=== PATIENT | male | born 1935 | race Two or more races ===

== ENCOUNTER 2016-11-30 01:57 | Inpatient (IN) | payer MEDICARE ==
[~2016-11-30] VITALS: Ht 179.1 cm; Wt 74.4 kg
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
--- NOTE | 2016-11-30 07:46 | NUR ---
Received nursing message to change attending MD to , called admissions and spoke to Mahogany to make change.
[2016-11-30 08:02] VITALS: BP 105/46; BP 159/108
--- NOTE | 2016-11-30 08:30 | NUR ---
B.) Entered patient room, patient immediately jumped out of bed and came up to nurse face and with an aggressive tone of voice " get out of my house, you are not needed here, get out." unable to redirect or orient patient, becoming angry as nurse tried to talk to him, patient then closed the door. I.) No medications ordered at this time. Allow patient to settle into unit milieu, allow to vent. Monitor safety. R.) Patient refuses conversation and assessment, unccoperative with any care, refused to come out of room, refused breakfast. Attempts at aggression when approached, will not allow interaction. Closes self in room. Safety maintained, checked on often, no distress assessed. P.) Continue with plan of care.
[2016-11-30] MEDS ORDERED: GLUCOPHAGE500 MG PO (13:52)
[2016-11-30] MEDS ORDERED: BAYER CHEWABLE81 MG PO (13:56)
[2016-11-30] MEDS ORDERED: JALYN 0.5-0.41 EACH PO (13:56)
[2016-11-30] MEDS ORDERED: NAPROSYN500 MG PO (13:57)
--- NOTE | 2016-11-30 14:14 | NUR ---
Remains in room, quite and sleeping, awakes to door opening.
[2016-11-30] MEDS ORDERED: DITROPAN X10 MG/BOTT PO (19:14)
[2016-11-30] MEDS ORDERED: ALTACE5 MG PO (19:15)
[2016-11-30 19:30] VITALS: BP 113/85
[2016-11-30 20:00] LABS: BASOPHILS 0 % (0-2); HEMOGLOBIN 13.3 g/dL (13.5-17.5); IMMATURE GRANULOCYTES 0.3 % (0-5); LYMPHOCYTES 28.6 % (15-50); MCHC 32.4 g/dL (31.0-37.0); MCV 86.3 fL (80.0-100.0); MEAN PLATELET VOLUME 9.7 fL (7.4-10.4); MONOCYTES 13.1 % (2-11); PLATELET COUNT 192 10x3/uL (130-400); RBC 4.75 10x6/uL (4.20-6.10); RDW 13.9 % (11.5-14.5); WBC 3.3 10x3/uL (4.8-10.8)
[2016-11-30 20:23] LABS: ALBUMIN 3.7 g/dL (3.4-5.0); ANION GAP 12.8 mmol/L (8-16); BILIRUBIN - TOTAL 0.48 mg/dL (0.2-1.3); CALCIUM 8.8 mg/dL (8.5-10.1); CARBON DIOXIDE 28.3 mmol/L (21.0-32.0); CHOL - HDL RATIO 2.7 ratio (2.3-4.9); CREATININE - SERUM 1.6 mg/dL (0.6-1.3); LDL-HDL RATIO 1.6 ratio (1.5-3.5); POTASSIUM - SERUM 4.1 mmol/L (3.5-5.1); PROTEIN - SERUM 7.2 g/dL (6.4-8.2); THYROID STIMULATING HORMONE 1.01 uIU/mL (0.36-3.74)
--- NOTE | 2016-11-30 20:28 | NUR ---
RECEIVED IN DAYROOM. SITTING QUIETLY AT TABLE WITH STAFF. CALM AND COOPERATIVE WITH CARE AND ASSESSMENTS. ORIENTED TO SELF ONLY. NO SIGNS OF AGGRESSION. REORIENT NEEDED. RESTING IN RECLINER AT THIS TIME. CONTINUE PLAN OF CARE
[2016-12-01 07:00] VITALS: BP 128/95
--- NOTE | 2016-12-01 12:44 | NUR ---
Received patient this am,alert and oriented to name and somewhat to place. Administer medications and monitor compliance. Redirect for any inappropriate behavior. Reorient as need. Encourage group participation. Monitor safety. Compliant with medications, pleasant but is confused to place and situation, unable to recall reason for hospitalization, when states age he forgets and states new age every time. Calm and cooperative with care. Particiates in group activities and is social with peers without any aggressive behavior. Safety maintained. Continue plan of care.
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
[2016-12-01 13:57] VITALS: Ht 179.1 cm; Wt 74.4 kg
[2016-12-01 19:23] VITALS: BP 157/102
--- NOTE | 2016-12-01 21:44 | NUR ---
RECEIVED IN DAYROOM. MOVING ABOUT SOCIALIZING WITH PEERS. VERY CONFUSED TO SITUATION. CALM AND COOPERAQTIVE WITH CARE AND ASSESSMENT. REDIRECT AND REORIENT NEEDED. PROVIDE ONE ON ONE TIME FOR PATIENT TO EXPRESS FEELINGS. RESTING IN BED EYES CLOSED AT THIS TIME. CONTINUE PLAN OF CARE
--- NOTE | 2016-12-02 03:03 | NUR ---
UP IN HALLWAY. CONFUSED. THINKS HE IS AT HOME AND WANTS TO KNOW WHO EBVERYONE IS. REORIENED. REDIRECTED BACK TO HIS ROOM. CONTINUES TO HAVE ANXIETY. ATIVAN 0.5 MG PO GIVEN
[2016-12-02 06:15] LABS: RAPID PLASMA REAGIN Non Reactive (Non Reactive)
[2016-12-02 08:36] VITALS: BP 141/92
[2016-12-02 11:19] LABS: VITAMIN D 25 HYDROXY 16.2 ng/mL (30.0-100.0)
[2016-12-02 15:03] LABS: APPEARANCE CLEAR (CLEAR); BILIRUBIN NEGATIVE (NEGATIVE); COLOR YELLOW (YELLOW); GLUCOSE NEGATIVE (NEGATIVE); KETONE NEGATIVE (NEGATIVE); LEUKOCYTE ESTERASE NEGATIVE (NEGATIVE); NITRITE NEGATIVE (NEGATIVE); PROTEIN TRACE mg/dL (NEGATIVE); SPECIFIC GRAVITY 1.015 (1.005-1.020); UROBILINOGEN NORMAL (NORMAL)
--- NOTE | 2016-12-02 15:54 | NUR ---
Patient is calm and cooperative. Oriented to self only, not time, place or situation. Several times patient has asked to be able to notify , he was assured that he can call her at the designated time. Patient is very amiable and friendly. At various times reads or watches t.v. His gait is slightly impaired, attempts have been made to get him to use a walker. He is reluctant to use. Continue to monitor
--- NOTE | 2016-12-02 16:51 | PN ---
PATIENT:THUAN COX MEDICAL RECORD: [id number] LOCATION:[facility] ADMISSION DATE: 11/30/16 PROGRESS NOTE DATE OF SERVICE: 12/01/2016 SUBJECTIVE: The patient's case was discussed with staff. He has no new complaint. OBJECTIVE: The patient has been in good behavioral control, but he is seriously and significantly confused. He has been unable to tract or remember thinking adequately. He insists that he knows nothing about how or why he arrived here and insists that he has never met me even though we met yesterday. He is asking the same questions repeatedly and although he is not agitated it is very clear that he is impaired cognitively. ASSESSMENT: No change in diagnoses. PLAN: The patient is going to be tested by Dr. Vibha Tan our neuropsychologist. I anticipate he is going to score in the severe range of impairment. Given his agitated behavior with a hammer and his aggression toward his , I must recommend a long-term placement for him for reasons of safety. The family will be here this afternoon and that recommendation it will be made, I do not know what their intentions are at this point. I think that would be the least restrictive environment. TRANSINT:[id number] Voice Confirmation ID: [id number] DOCUMENT ID: [id number] MARQUISE FRY MD at 1651 CC: [id number] DICTATION DATE: 12/01/16 1407 MEDICAL INVESTIGATOR: 12/01/16 2105 ADM IN [facility] [address] [place] [id number]
[2016-12-02 19:19] VITALS: BP 120/80
--- NOTE | 2016-12-02 21:10 | NUR ---
B)RECEIVED IN HALLWAY, AMBULATING ABOUT INDEPENDENTLY. SOCIALIZES WITH PEERS. CALM AND COOPERATIVE WITH CARE AND ASSESSMENT. VERY CONFUSED AND DISORIENTED. STATES, "THIS IS MY HOUSE AND ICAN DO WHAT I WANT TO." I) ADMINISTERED MEDICATIONS. REDIRECTED AND REORIENTED. VSS. R) MEDICATION COMPLIANT. DIFFICULT TO REDIRECT AND DOESN'T COMPREHEND WHERE HE IS. P) CONTINUE WITH CURRENT PLAN OF CARE.
--- NOTE | 2016-12-03 10:01 | NUR ---
SW SPOKE WITH PT'S , WINNIE, ABOUT DISCHARGE PLANS FOR TOMORROW. SW EXPLAINED PT'S LEVEL OF CARE NEEDED AND JAIL PLACEMENT WAS RECOMMENDED. STATED SHE TOOK CARE OF HER MOTHER WITH [facility] AND IS WELL AWARE OF THE CARE NEEDED. SW STATED PT WILL NEED 24/7 SUPERVISION. PT HAS A BIG SUPPORT SYSTEM AND FAMILY WILL HELP OUT WHEN NEEDED REPORTED BY MRS. COX. VERBALIZED UNDERSTANDING OF DISCHARGE PLANS AND LEVEL OF CARE NEEDED.
--- NOTE | 2016-12-03 10:20 | NUR ---
B) PATIENT IS AWAKE AND ALERT, HE IS CONFUSED. HE HAS FORGOTTEN HE IS IN THE HOSPITAL, AFTER BREAKFAST HE SAID HE WANTED TO GO TO HIS ROOM, STAFF HAD TO EXPLAIN TO HIM THAT HE IS IN THE HOSPITAL. HE KEEPS REFERRING TO BEING HERE A HOTEL. PATIENT AMBULATES, BUT HE IS UNSTEADY, HE LEANS FORWARD AND HE IS A FAST WALKER. HE REFUSES A WALKER WHEN OFFERED. I) PROVIDE PRESCRIBED MEDS. R) PATIENT IS COMPLIANT WITH MEDS, BUT HE REMAINS CONFUSED. P) CONTINUE PLAN OF CARE.
[2016-12-03 10:30] VITALS: BP 128/83
--- NOTE | 2016-12-03 13:55 | PN ---
PATIENT:THUAN COX MEDICAL RECORD: [id number] LOCATION:[facility] ADMISSION DATE: 11/30/16 PROGRESS NOTE DATE OF SERVICE: 12/02/2016 SUBJECTIVE: The patient's case was discussed with staff. He has no new complaint. OBJECTIVE: The patient was agitated last night. Apparently, he moved all of his things out of his room. He has no recollection of this. He did require some p.r.n. Ativan last night about 3:00 in the morning to calm him. ASSESSMENT: No change in diagnoses. PLAN: The patient is likely to continue to have confusion, particularly at night. This is the crux of why he should not be at home and should be living in a safer environment with structure. His has nothing, but kindness and concerned about his well being, but in my opinion, she is making a grave mistake by not placing him in the halfway and she is potentially at risk. There is not a medicine that would guarantee that he is not going to become confused, agitated, and perhaps aggressive with her. I think it will happen again. She is understanding of this and just simply says that she would not placed in a halfway ever. This is not a good decision. It does not rise to the level at this point of being reportable to adult protective services, so they can intervene. Unfortunately, it will not rise to the level being reported to adult protective services until there is a serious incident and therein lies the dilemma with clearly the person most at risk being his . I anticipate he can be transitioned out of the hospital soon. TRANSINT:[id number] Voice Confirmation ID: [id number] DOCUMENT ID: [id number] MARQUISE FRY MD at 1355 CC: [id number] DICTATION DATE: 12/02/16 1702 HOSPITALITY TEAM MEMBER: 12/02/16 2352 ADM IN [facility] [address] [place] [address]
[2016-12-03] MEDS ORDERED: NAMENDA5 MG PO (14:00)
[2016-12-03] MEDS ORDERED: FLOMAX0.4 MG PO (14:00)
[2016-12-03] MEDS ORDERED: SEROQUEL25 MG PO (14:00)
[2016-12-03] MEDS ORDERED: AVODART0.5 MG PO (14:01)
--- NOTE | 2016-12-03 15:46 | NUR ---
PATIENT IS CONFUSED HE KEEPS SAYING "WELL, i GUESS i BETTER GO NOW, I CAN WALK HOME" PATIENT HAS HAD TO BE REDIRECTED, BUT IN FIVE MINUTES HE SAYS THE SAME THING.
[2016-12-03 19:30] VITALS: BP 152/58
--- NOTE | 2016-12-03 20:45 | NUR ---
SHIFT ASSESSMENT COMPLETED PER FLOW SHEET. RECEIVED AMBULATING INDEPENDENTLY IN HALLWAY, WITH A FAST GAIT. VERY CONFUSED AND ANXIOUS TONIGHT. HE WANTS TO GO HOME TONIGHT, LOOKING FOR HIS CAR, WALKS OUT OF ROOM FREQUENTLY LOOKING FOR REFRIGERATOR. HE HAS BEEN VERY ARGUING WITH STAFF AND PEERS TONIGHT. REDIRECT TO APPROPRIATE BEHAVIOR. DIFFICULT TO REDIRECT. MEDICATION COMPLIANT. WILL CONTINUE PLAN OF CARE AND MAINTAIN SAFETY.
--- NOTE | 2016-12-03 21:30 | NUR ---
DR. FRY CALLED RE: MEDICATIONS FOR INCREASING AGITATION AND ANXIETY. NEW MEDS. RECEIVED AND NOTED.
--- NOTE | 2016-12-03 21:51 | NUR ---
HALDOL 2 MG AND ATIVAN 0.5 MG IM GIVEN IN LEFT DORSOGLUTEALFOR ANXIETY.
[2016-12-04 08:37] VITALS: BP 151/93
--- NOTE | 2016-12-04 12:05 | NUR ---
B) PATIENT IS AWAKE, HE IS ORIENTED TO NAME ONLY, HE IS CONFUSED, HE BELIEVES HE IS IN [place] AND HIS IS SUPPOSE TO PICK HIM UP, ALTHOUGH, HE SAYS "I DROVE THE OTHER CAR HERE" HE IS NONSENSICAL AND HE CONFABULATES. HE IS UNSTEADY IN GAIT BECAUSE HE LEANS FORWARD AND WALKS FAST. I) PROVIDE PRESCRIBED MEDS, REDIRECT NEEDED. R) PATIENT IS COMPLIANT WITH MEDS, HE ASKS THE SAME QUESTION MULTIPLE TIMES. MOSTLY ABOUT LEAVING AND WONDERING ABOUT HIS . P) CONTINUE PLAN OF CARE.
--- NOTE | 2016-12-04 12:55 | NUR ---
Nutrition Follow Up: Chart reviewed. Pt is eating 90% meal avg on a diabetic diet. No BM since admit. Labs reviewed - Glucose trending down. Meds noted including Metformin. Rec continue current diet. RD following.
--- NOTE | 2016-12-04 13:17 | PN ---
PATIENT:THUAN COX MEDICAL RECORD: [id number] [facility] ADMISSION DATE: 11/30/16 PROGRESS NOTE DATE OF SERVICE: 12/03/2016 SUBJECTIVE: The patient's case was discussed with staff. He has no new complaint. OBJECTIVE: The patient is in good behavioral control with limited insight about his condition. He tolerates his medicines well. ASSESSMENT: No change in diagnoses. PLAN: The patient is not acutely dangerous. He is quite confused. I think that the least restrictive environment that can meet his needs would be a skilled nursing, but that is not what the family wants to do. This has been documented previously, I think, extensively by myself and the adoption social worker. I am going to go ahead and discharge him tomorrow. His long-term prognosis is guarded. TRANSINT:[id number] Voice Confirmation ID: [id number] DOCUMENT ID: [id number] MARQUISE FRY MD at 1317 CC: [id number] DICTATION DATE: 12/03/16 1402 LAUNCH CHECK OUT: 12/03/16 2347 ADM IN [facility] [address] [place] [address]
--- NOTE | 2016-12-04 17:09 | NUR ---
PATIENT'S BROTHER VAN CALLED AND CHECKED ON HIS STATUS. HE ASKED ABOUT HIS MEDS AND HE SAID HE MAY HAVE HIS WHO IS A NURSE CALL BACK AND TALK TO A NURSE.
--- NOTE | 2016-12-04 18:31 | NUR ---
THUAN COX'S DAUGHTER IN LAW CALLED AND DISCUSSED THE HALDOL AND SEROQUEL. SHE IS A REGISTERED NURSE AND HER CONCERN IS THAT THE SIDE EFFECTS OF THE MEDICATIONS MAY BE WORSE THAN THE EFFECTIVENESS OF THE MEDICATIONS. EXPLAINED TO HER THAT OUR PSYCHIATRISTS ARE VERY KNOWLEDGABLE IN PRECRIBING, BUT THAT I WILL PASS ON HER CONCERN TO THE PSYCHIATRIST. I SAID I APPRECIATE HER CONCERN AND RESPECT HER WISHES MR. COX IS A WONDERFUL MAN. SHE SAID "YES, AND SHE WANTS TO HONOR THAT HE HAS BEEN A GOOD PERSON AND HE IS INTELLIGENT AND HAS LIVED A NICE LIFE" SHE REQUESTS THAT THE PSYCHIATRIST "PLEASE ENTERTAIN OTHER OPTIONS FOR MEDICATIONS" TOLD HER THAT "YES, MA'AM I WILL LET THE KNOW, BUT MR. COX WILL NOT BE ON HALDOL FOR AN EXTENDED TIME.
[2016-12-04 19:30] VITALS: BP 118/80
--- NOTE | 2016-12-05 00:58 | NUR ---
B) Recieved patient wandering around in the day room, alert and oriented to self only, confused and thinks he is in [place], restless and unable to stay in bed or sitting I) Administered perscribed medications, PRN Ativan 0.5 mg IM and Haldol 2 mg IM given for Anxiety R) Medication compliant, restless and unable to sleep P) Continue plan of care.
--- NOTE | 2016-12-05 07:30 | NUR ---
Received this am, alert and oriented to name only, patient very confused, attempting to get up unassisted from jay chair, per pm shift patient has not slept all night and required prn medication for confusion and esclated behavior, he is now settled in jay chair intermittently sits up and attempt to get up then falls back off to sleep. Administer medications and monitor compliance. Redirect and reorient as need. Monitor for any change in behavior. Monitor safety. Compliant with medications given in applesauce, did not eat breakfast due to fell off to sleep. Now incontinent of urine, required assist times two to stand to change clothes. Resting quietly in chair with no distress assessed. Safety maintained. Continue plan of care.
[2016-12-05 08:16] LABS: FOLATE (FOLIC ACID) - SERUM 18.9 ng/mL (>3.0)
[2016-12-05 10:35] VITALS: BP 160/98
--- NOTE | 2016-12-05 12:46 | NUR ---
Awake sitting at table eating lunch, calm and cooperative.
--- NOTE | 2016-12-05 13:00 | NUR ---
Sitting at dinning room table, eating lunch, tech attempted to assist patient due to noted difficulty getting food on fork. Patient became argumentive with attmepts to get up unassisted, unsteady on his feet with near fall but caught per nurse and he fell back into jay chair, then pushes nurse hand away and starts using profanity " got me locked up in here you and Jacqui can have this place." difficult to redirect, but finally decided to cooperate and started eating his food. Chair alarm in place.
--- NOTE | 2016-12-05 15:39 | NUR ---
Patient brother here visiting, initially patient was sleeping, woke up thinking he was home and did not recognize his brother until brother kept prompting him.
[2016-12-05 19:30] VITALS: BP 121/86
--- NOTE | 2016-12-05 21:00 | NUR ---
B) RECEIVED AT NURSES DESK SITTING IN RECLINER. AWAKE AND ORIENTED TO SLEF ONLY. CALM AND COOPERATIVE WITH CARE AND ASSESSMENT. SAUS HE IS TIRED AND READY TO GO TO BED. I) ADMINISTER PRESCRIBED MEDICATIONS. VSS. REDIRECTING EASIER TONIGHT. R) MEDICATION COMPLIANT, CRUSHED IN APPLESAUCE. P) CONTINUE PLAN OF CARE AND MONITOR FOR CHANGES AND SAFETY.
[2016-12-06 07:00] VITALS: BP 127/81
--- NOTE | 2016-12-06 10:21 | NUR ---
Patient in bed, complient with medication, calm and cooperative. Oriented to self, says he's in some kind of "nursing staff development coordinator nursing staff development coordinator place". He is pleasant in mood. Bed in lowest position, call light in reach, guard rails up x 2 and alfa alarm activated. Continue to monitor, continue plan of care.
--- NOTE | 2016-12-06 11:17 | NUR ---
Patient is oriented to self only, he has forgotten he is in the hospital at this time. He is in recliner reading, has to be reoriented frequently to where he is. After reoriented patient says "Oh, that's right, I keep forgetting." Patient calm, cooperative and pleasant. Continue plan of care.
--- NOTE | 2016-12-06 13:54 | NUR ---
Skye Munoz, daughter of patient, called to say she was P.O.A. for Mr. Munoz. I told her to fax the information to the unit. She also inquired about the use of Haldol for the patient. I informed her it was only used prn, if the patient was expieriencing extreme anxiety. She said she had family that work with senior patients and didn't want the medication used. I asked her to include the note within the fax. fax recieved.
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
[2016-12-06 19:30] VITALS: BP 130/89
--- NOTE | 2016-12-06 22:33 | NUR ---
B) Recieved patient sitting in day room watching TV< alert and oriented to self, confused and wanders at times, I) Administered perscribed medications, monitored for falls and safety, PRN Haldol 2 mg PO given for anxiety at 20:00, R) Medication compliant, resting now quietly in bed, P) Continue plan of care.
[2016-12-07 07:00] VITALS: BP 140/84
--- NOTE | 2016-12-07 09:38 | NUR ---
B.) Received this am alert and oriented to name only, does not realize he is in the hospital but is cooperative with am unit routine. Ambulatory with walker with stand by assist to dinning room. Pleasant mood. I.) Administer medications and monitor compliance, redirect and reorient as need. Monitor for any aggressive behavior. Monitor safety. R.) Compliant with medications. Calm and cooperative with assessment, reorients to place but does not retain orientation. No aggression. Safety maintained. P.) Continue plan of care.
--- NOTE | 2016-12-07 09:51 | PN ---
PATIENT:THUAN COX MEDICAL RECORD: [id number] LOCATION:[facility] ADMISSION DATE: 11/30/16 PROGRESS NOTE DATE OF SERVICE: 12/04/2016 SUBJECTIVE: The patient's case was discussed with staff. He has no new complaint. OBJECTIVE: The patient is in good behavioral control, quite polite, but seriously confused. He apparently became very psychotic and agitated last night, threatening, violent and required p.r.n. Haldol and Ativan. He has no recollection of the event and he was actually scheduled to be discharged today. Unfortunately, his condition now is going to require a longer stay. The patient is severely impaired cognitively, but kind, cooperative, gentle and polite 99% of the time. Unfortunately, that 1% of the time represents a true risks to his . Hopefully, she will reconsider jail placement as I think that this is a safer environment. I am going to try to treat him with a higher dose of Seroquel, which may help the situation, but I think that the family is making a mistake in their decision to take him home and not place him in a jail. At this point, I am going to increase his Seroquel to 25 mg twice daily and we will maintain him on his current dose of Namenda. TRANSINT:[id number] Voice Confirmation ID: [id number] DOCUMENT ID: [id number] MARQUISE FRY MD at 0951 CC: [id number] DICTATION DATE: 12/04/16 1337 AUTOMOTIVE DESIGN LAYOUT DRAFTER: 12/04/162001 ADM IN [facility] [address] [place] [address]
[2016-12-07 19:28] VITALS: BP 127/92
--- NOTE | 2016-12-07 19:29 | NUR ---
RECEIVED IN DAYROOM. SITTING IN CHAIR. SOCIAL WITH STAFF AND PEERS AT TIMES. NO SIGNS OF AGGRESSION. CONFUSED. CAM AND COOPERATIVE WITH CARE. REDIRECT AND REORIENT NEEDED. CONTINUE PLAN OF CARE
--- NOTE | 2016-12-08 01:12 | NUR ---
INCREASING ANXIETY. IN HALLWAYS EXIT SEEKING. VERY CONFUSED. WANTING TO CALL . ATIVAN 0.5 MG PO GIVEN
[2016-12-08 08:58] VITALS: BP 139/87
--- NOTE | 2016-12-08 13:44 | NUR ---
B.) Received this am alert and oriented to self only. Cooperative with assessment. I.) Administer medications and monitor compliance. Redirect and reorient as need. Monitor for any change in behavior. Monitor safety. R.) Compliant with medications, argumentive when oriented to place, patient thinks he is at home, short term reorientation to place and situation. Wanders around dayroom with walker, and at times forgets walker and has to be reminded. Monitored for safety. No aggression. P.) Continue plan of care.
--- NOTE | 2016-12-08 14:01 | PN ---
PATIENT:THUAN MUNOZ MEDICAL RECORD: [id number] LOCATION:[facility] ADMISSION DATE: 11/30/16 PROGRESS NOTE DATE OF SERVICE: 12/07/2016 Psychiatric Consultation SUBJECTIVE: The patient's case was discussed with staff. He has no new complaint. OBJECTIVE: Mr. Munoz is polite, cooperative and interactive. He is partially oriented and continues to ask the same questions over and over. He is curious about why he is here, what is going on, where his is, and why he cannot be at home. His very simple questions are answered and then he will begin asking the same questions again. Unfortunately, he has had a terrible weekend. At night, he becomes not only, confused, but very agitated, violent and aggressive and does required multiple p.r.n. doses of Haldol and Ativan to calm him. He is taking the medication that I prescribed, but they do not seem to be helping. ASSESSMENT: Senile dementia of the Alzheimer's type with behavioral disturbances. PLAN: I am going to discontinue the patient's Seroquel since it has not been helpful. I am also going to start him on a scheduled dose of Geodon since that often helps with people who were violent and agitated as well as being an antipsychotic and assisting in organizing thought processes. In addition to this, I am going to order a p.r.n. dose of Geodon simply because he has had some extrapyramidal side effects related to the use of the Haldol. Overall, I must say his condition is not only no better, it is probably worst given that he is now in an unfamiliar environment. His family continues to insist that they want to take him home, but they have a big family and that they can care for him. This is contrary to my recommendation, but is not so and appropriate that it rises to the level of being reported to the authorities. I cannot envision how he could be taken at home now since every single night he is becoming aggressive, violent and confused. Certainly, a fdc, dementia unit would be the most appropriate setting for him. I am going to try the new medications as I have described above and although I am a little reluctant to do so perhaps a low dose of a benzodiazepine might help relieve some of the anxiety he feels particularly at night. Many of these symptoms are very consistent with an advanced dementia and/or simply not going to improve. I think that his highest quality of life would be in a structured fdc setting where there are staff who could redirect or handle him if he became behaviorally out of control and his and other family members could visit with him as often as they wish taken out on outings and otherwise be there to help him, but I am very worried about him being at home with his elderly given the circumstances we have already documented. TRANSINT:[id number] Voice Confirmation ID: [id number] DOCUMENT ID: [id number] PROGRESS NOTE [id number] THUAN MUNOZ PETER MD at 1401 CC: [id number] DICTATION DATE: 12/07/16 1214 ALLERGIST IMMUNOLOGIST: 12/07/16 2131 [facility] IN [facility] [address] [place] [address]
--- NOTE | 2016-12-08 19:29 | NUR ---
RECEIVED IN DAYROOM. SITTING IN RECLINING CHAIR. VERY CONFUSED TO SITUATION. UNABLE TO ORIENT TO SITUATION. CALM AND COOPERATIVE WITH CARE AND ASSESSMENT. CONTINUE TO REDIRECT AND REORIENT NEEDED. CONTINUES TO BE CONFUSED TO SITUATION. CONTINUE PLAN OF CARE
[2016-12-08 19:34] VITALS: BP 145/82
[2016-12-09 07:00] VITALS: BP 154/93
--- NOTE | 2016-12-09 11:02 | NUR ---
PT VERY TIRED THIS MORINING DUE TO POOR SLEEP ON PREVIOUS NIGHT. PT CONTINUES TO BE ANXIOUS AND DIFFICULT TO REDIRECT DUE TO SEVERE SHORT TERM MEMORY. REDIRECTION DONE FREQUENTLY BUT NO EVIDENCE OF RETAINING. PT IS A HIGH FALL RISK AND REQUIRES ASSISTANCE BUT HE KEEPS LEAVING HIS WALKER. STAFF TO ASSIST DURING AMBULATION BUT PT REFUSES ASSIST AND BECOME AGITATED AT TIMES. PT LEANS FORWARD AND WALKS AT A BRISK PACE WHICH PUTS HIM AT A HIGH FALL RISK. BOX ALARM IN PLACE WHEN PT IS SITTING. PT REFUSED BREAKFAST BUT IS EATING A SNACK AT THIS TIME. PT TOOK MOST OF HIS MEDICATIONS, BUT HE DID REFUSE SOME STATING, "i HAVE HAD ENOUGH". EDUCATED ON IMPORTANCE OF MEDICTIONS BUT HE CONTINUED TO REFUSE. WILL CONTINUE WITH PLAN OF CARE.
--- NOTE | 2016-12-09 17:04 | NUR ---
PT VERY AGITATED AND ATTEMPTED TO HIT STAFF. STAFF WAS TRYING TO KEEP PT FROM FALLING AND HE REFUSED ASSISTANCE OR TO USE HIS WALKER. PT YELLING AT STAFF. PT REFUSED FINGER STICK OR MEDICATIONS. PT MAKING RANDOM PARANOID DELUSIONAL STATEMENTS ABOUT STAFF "OUT TO GET HIM" AND "YOU ARE TAGGING UP ON ME". UNABLE TO GET PT TO CALM DOWN. PT IS A 1:1 WITH STAFF TO PREVENT FALLS.
[2016-12-09 20:58] VITALS: BP 141/91
--- NOTE | 2016-12-09 21:29 | NUR ---
B) recieved patient in the day room, alert and oriented to self, wanders at times with very unsteady gait, very high fall risk, I) Administered perscribed medications crushed in orange serbert, monitored for falls and safety, R) Medication compliant, resting now quietly in be, P) Continue plan of care, continue to monitor.
[2016-12-10 09:47] VITALS: BP 103/71
--- NOTE | 2016-12-10 10:59 | NUR ---
B) PATIENT IS CONFUSED, HE FORGETS ONE MOMENT TO THE NEXT. HE IS CALM, HE HAS NOT SHOWN ANY AGGRESSION. HE IS UNSTEADY. HE EZEKIEL OVER AND WALKS FAST. I) PROVIDE PRESCRIBED MEDS, REDIRECT NEEDED. R) PATIENT IS COMPLAINT WITH MEDS AND UNIT MILIEU. P) CONTINUE PLAN OF CARE.
--- NOTE | 2016-12-10 11:12 | NUR ---
Nutrition Follow Up: Chart reviewed. Pt is eating 79% meal avg on a diabetic diet. Labs reviewed - Glucose continues slightly elevated. Meds noted including Metformin, Vit D, Vit B12. No BM recorded since admit - x 10 days. Pt with good po intake at this time. Rec continue current diet. Rec bowel regimen as pt as not had a BM x [address] will continue to monitor pt progress.
--- NOTE | 2016-12-10 14:43 | PN ---
PATIENT:THUAN COX MEDICAL RECORD: [id number] LOCATION:[facility] ADMISSION DATE: 11/30/16 PROGRESS NOTE DATE OF SERVICE: 12/09/2016 SUBJECTIVE: The patient's case was discussed with staff. He has no new complaint. OBJECTIVE: The patient has been very restless, confused and at times agitated. He is a very high fall risk and it has been explained to him repeatedly that he should use a walker until his medicines are properly adjusted or ask for assistance. He says he will do this, but then he cannot remember, forgets and stands up to walk. He did require p.r.n. medication at 2:30 a.m. this morning because of confused, psychotic agitated behavior as documented by the night nurse. He only slept 1-1/4 hour and shows no evidence of fatigue right now. ASSESSMENT: Senile dementia of the Alzheimer's type with behavioral disturbances. PLAN: I am going to increase the patient's trazodone. This new regimen of medications has not really had an opportunity to become effective. The patient's still wants to take him home which is of course her choice; however, she has been briefed about the concerns about her safety. She is a very kind and devoted who just simply has guilt about placing him in a usp or at least that is my perception of the situation. At this point, I do not think it is safe to transition him out of the hospital. Given his current medication regimen and the changes I made today, hopefully we will see an improvement. He is still walking stooped over which I think is an extrapyramidal effect that is lingering from the Haldol he received over the weekend. If I am wrong and that continues, I will have to reassess whether or not he is having EPS associated with the Geodon. TRANSINT:[id number] Voice Confirmation ID: [id number] DOCUMENT ID: [id number] MARQUISE FRY MD at 1443 CC: [id number] DICTATION DATE: 12/09/16 1331 GUEST RELATIONS EXECUTIVE: 12/09/16 2220 ADM IN [id number] [place] [address]
--- NOTE | 2016-12-10 14:43 | PN ---
PATIENT:THUNA COX MEDICAL RECORD: [id number] LOCATION:[facility] ADMISSION DATE: 11/30/16 PROGRESS NOTE DATE OF SERVICE: 12/08/2016 SUBJECTIVE: The patient's case was discussed with staff. He has no new complaint. OBJECTIVE: The patient is very impaired cognitively. That has been demonstrated with observation in bed exam as well as formal neuropsychological testing. He continues to become quite confused and then when he is unable to sort out what is going on in his environment aggressive. This happened again last night after midnight, he required p.r.n. Ativan to calm him. Even with that, he only slept 3 hours. He is involved in activities during the day and efforts are being made to keep him awake. He is walking slouched over, this is different from when he came in, I suspect that is related to the antipsychotic medication. He has not had a dose of p.r.n. Haldol since Wednesday. I would anticipate that the stooped over appearance will improve. He is receiving scheduled Geodon and I am going to start him on a low dose of Ativan at bedtime since every night he is requiring something. He was reasonably redirectable today, but he was wanting to know who I am and what I am doing in his house. Also, somehow he managed to get his hands on Coca Cola that is not diet. Number 1, he should not have a can and number 2 he is a diabetic and should not have a cola, but apparently he was able to get into the kitchen area and the lock on the refrigerator was not on. I do not think he is going to be thrown into a crisis with his blood sugar over a 6 ounce can of soda, but when asked about it, he becomes extremely angry and tells me it is none of my business that he wants to drink a soda pop in his house and who am I to be in his house and asking him these questions. His alf prognosis is extremely poor. He has a very advanced dementia and I continued to repeat to the treatment team and to the family if necessary the belief that it is inappropriate for him to be at home with his . I think that is potentially dangerous and that the end point of this hospitalization is not that he is going to be free from confused behavior at night, but that we see a manageable reduction in it. Even with that because the disease is progressive, he is likely to demonstrate behaviors again. At this point, I am struggling to get the best balance of medication and side effect. I know the stooped over behaviors related to the antipsychotic, probably the Haldol he received on Wednesday and Wednesday, but I obviously am not going to give Cogentin or Artane to someone who is 81 years old and has an end-stage dementia. I think the benefit to his posture would be outweighed by the damage to his cognition. TRANSINT:[id number] Voice Confirmation ID: [id number] DOCUMENT ID: [id number] PROGRESS NOTE [id number] THUAN COX PETER MD at 1443 CC: [id number] DICTATION DATE: 12/08/161412 PRIMARY PRODUCTS INSPECTORS: 12/08/162000 ADM IN [facility] [address] [place] [address]
--- NOTE | 2016-12-10 15:10 | NUR ---
PATIENT'S DAUGHTER RUPERT COX CALLED AND SHE REQUESTS THAT HER FATHER'S PSYCHIATRIST PLEASE CALL HER, SHE WOULD LIKE TO KNOW THE DIAGNOSIS, THE MEDICATIONS, THE PROGNOSIS, AND WHAT STEPS THEY WILL NEED TO TAKE. HER PHONE NUMBER .
[2016-12-10 19:54] VITALS: BP 137/79
--- NOTE | 2016-12-11 02:28 | NUR ---
B) Recieved patient ambulating in the day room, alert and oriented to self, very confused, poor short term memory AEB thinking he just arrive at the hospital, I) Administered perscribed medications, monitored for falls and safety, R) Medication compliant, cooperative with staff, P) Continue plan of care,
[2016-12-11 10:15] VITALS: BP 133/77
--- NOTE | 2016-12-11 14:01 | NUR ---
B) PATIENT REMAINS CONFUSED, HE IS STANDING MORE ERECT TODAY. HE DOES STILL HAVE A STOOPED OVER BACK, BUT LESS THAN YESTERDAY. HE HAS ALREADY SAID HE THINKS HE NEEDS TO GO AHEAD AND GO HOME SINCE HE HAS NO LECTURES PLANNED TODAY. HE DID INTERACT IN GROUPS TODAY AND KEEPING HIM BUSY AND OCCUPIED HELPS TO LESSEN HIS AGITATION AND PLANS FOR ELOPEMENT. PATIENT IS COOPERATIVE. I) PROVIDE PRESCRIBED MEDS AND REDIRECT NEEDED. R) PATIENT IS COMPLIANT WITH MEDS, BUT HE LOOKS AT THEM IN DISBELIEF. HE SAYS "I TAKE ALL OF THOSE, MAYBE YOU NEED TO GO BACK AND GET A FEW MORE" HE DOES HAVE A NICE SENSE OF HUMOR. P) CONTINUE PLAN OF CARE.
--- NOTE | 2016-12-11 15:20 | NUR ---
PATIENT IS ANXIOUS, HE HAS BECOME IRRITABLE AND PARANOID. HE BELIEVES ASHA PETERST IS HIS MAXINE. HE IS BECOMING UPSET WITH HER, ATTEMPTED TO REDIRECT AND CHANGE THE SUBJECT WITH HIM, BUT HE IS ANGRY AT MAXINE. PROVIDED ATIVAN 0.5 MG PO NOW, WILL MONITOR.
--- NOTE | 2016-12-11 16:15 | NUR ---
PATIENT IS CALMER, HE IS INTERACTING AND HE IS NOT UPSET AT THIS TIME.
--- NOTE | 2016-12-11 16:41 | NUR ---
AT 1641 CHECKED PATIENTS BLOOD SUGAR AND I DID NOT RECEIVE ENOUGH BLOOD SO THERE WAS A FAIL, RECHECKED PATIENTS BLOOD SUGAR USING THE SAME FINGER PRICK AREA, BUT IT MAY HAVE CLOTTED THEN REBLED. IT SHOWED 408. RECHECKED WITH ANOTHER FINGER STICK AND THIS TIME IT READ 168. THAT IS MORE HIS NORMAL RANGE FOR THIS TIME OF DAY.
--- NOTE | 2016-12-11 17:16 | NUR ---
PATIENT'S SISTER CALLED AND ASKED ABOUT THE UPDATE AND PROGNOSIS. SHE WONDERED HOW HE IS DOING. EXPLAINED TO HER THAT HE IS A WONDERFUL PERSON, BUT SOMETIMES HE HAS AGGRESSION AND AGITATION AND POOR SHORT TERM MEMORY RECALL.
--- NOTE | 2016-12-11 17:39 | NUR ---
PATIENTS SPOUSE CALLED TO SPEAK TO PATIENT.
[2016-12-11 19:30] VITALS: BP 116/80
--- NOTE | 2016-12-12 01:37 | NUR ---
PATIENT UP SEVERAL TIMES DURING NIGHT, HE IS SAYING THAT HE HAS SO MUCH TO DO. PATIENT ORIENTED TO SELF ONLY, REORIENTED TO TIME AND SITUATION. HE HAS RETURNED TO BED. CONTINUE TO MONITOR.
--- NOTE | 2016-12-12 04:00 | NUR ---
Patient not sleeping, stays up all night straitening bed spread. He is redirected to try to get sleep, and says "that's what I'll do" but gets back up and continues to straighten covers and move things around his room. Patient is reoriented and redirected but continues this behavior. Continue to monitor
[2016-12-12 11:23] VITALS: BP 120/79
--- NOTE | 2016-12-12 18:05 | NUR ---
ORIENTED TO SELF ONLY.CALM AND COOPERATIVE.COMPLIANT WITH MEDS.AMBULATES WITH UNSTEADY GAIT AND BENT OVER.WILL CONTINUE WITH PLAN OF CARE,MONITOR FOR CHANGES AND SAFETY.
[2016-12-12 19:30] VITALS: BP 124/83
--- NOTE | 2016-12-12 23:20 | NUR ---
Patient oriented to self only. He is reoriented, but forgets immediately. He is active and ambulatory. Patient forgets to use walker and has impaired gate. He is constantly moving items in his room, patient is not sleeping. Patient is forgetting he is in the hospital and at time gets agitated when redirected from wandering. Patients bed is low, slip socks are on and walker is continually given to patient. Continue to monitor, continue plan of care.
[2016-12-13 09:27] VITALS: BP 113/81
--- NOTE | 2016-12-13 16:52 | NUR ---
ORIENTED TO SELF ONLY.AMBULATES PER SELF WITH UNSTEADY GAIT,BENT OVER.LESS EXIT SEEKING OBSERVED TODAY.COMPLIANT WITH MEDS.WILL CONTINUE WITH PLAN OF CARE,MONITOR FOR SAFETY AND CHANGES.
--- NOTE | 2016-12-13 18:53 | PN ---
PATIENT:THUAN COX MEDICAL RECORD: [id number] LOCATION:[facility] ADMISSION DATE: 11/30/16 PROGRESS NOTE DATE OF SERVICE: 12/11/2016 SUBJECTIVE: The patient states he is "fine." OBJECTIVE: The patient slept only 4 hours last night. Prior to that, he had done somewhat better. He has been fairly well managed on current medication regimen. Concern exists, however, about aftercare as some family members have wanted to have him return home. On exam, mood is for the most part euthymic. Affect is reserved. Speech rather terse. Content of thought focuses on somatic concerns. Sensorium shows no change. ASSESSMENT: No change in diagnosis. PLAN: 1. Maintain current medications. 2. Continue supportive therapy. TRANSINT:[id number] Voice Confirmation ID: [id number] DOCUMENT ID: [id number] ADA BLACKBURN III, MD at 1853 CC: [id number] DICTATION DATE: 12/11/16 1051 SPACE SYSTEMS OPERATIONS MANAGER: 12/11/162019 ADM IN [facility] [address] [place] [id number]
--- NOTE | 2016-12-13 18:53 | PN ---
PATIENT:THUAN COX MEDICAL RECORD: [id number] LOCATION:[facility] ADMISSION DATE: 11/30/16 PROGRESS NOTE DATE OF SERVICE: 12/13/2016 SUBJECTIVE: No new complaint. OBJECTIVE: The patient has been exit seeking. He showed worsened confusion during the evenings. He has been compliant with medications. On exam, mood is for the most part euthymic. Affect is bland. Speech is tangential. Content of thought is negative for overt psychosis. Sensorium shows no change. ASSESSMENT: No change in diagnosis. PLAN: 1. Maintain present medications. 2. Continue supportive therapy. TRANSINT:[id number] Voice Confirmation ID: [id number] DOCUMENT ID: [id number] ADA BLACKBURN III, MD at 1853 CC: [id number] DICTATION DATE: 12/13/16 08 ARTIST MANNEQUIN COLORING: 12/13/16 1111 ADM IN [facility] [address] [place] [address]
[2016-12-13 19:20] VITALS: BP 128/76
--- NOTE | 2016-12-13 19:46 | NUR ---
RECEIVED IN DAYROOM. SITTING IN RECLINING CHAIR IN FRONT OF TV. CONFUSED. CALM AND COOPERATIVE WITH CARE AND ASSESSMENTS. NO SIGNS OF AGGRESSION. REDIRECT AND REORIENT NEEDED. CONTINUES TO SIT QUIETLY. CONTINUE PLAN OF CARE
[2016-12-14 07:00] VITALS: BP 135/83
--- NOTE | 2016-12-14 14:43 | PN ---
PATIENT:THUAN COX MEDICAL RECORD: [id number] LOCATION:[facility] ADMISSION DATE: 11/30/16 PROGRESS NOTE DATE OF SERVICE: 12/10/2016 SUBJECTIVE: The patient's case was discussed with staff. He has no new complaint. OBJECTIVE: The patient is in good behavioral control with poor insight about his condition. He tolerates his medicines well. ASSESSMENT: No change in diagnoses. PLAN: The patient still stooped over, he was agitated last night, but actually slept 8-1/2 hours. He has had numerous medication changes in the past few days and I think it is reasonable to just hold off on any additional changes through the weekend to see how the medicines are affecting him. At this point, I still do not think he is appropriate to go home with his . He is still having the owning behaviors and although the night nurse did not p.r.n. him, she said she easily could have justified it and was conflicted about doing so. TRANSINT:[id number] Voice Confirmation ID: [id number] DOCUMENT ID: [id number] MARQUISE FRY MD at 1443 CC: [id number] DICTATION DATE: 12/10/16 1500 LIQUID NATURAL GAS PLANT OPERATOR: 12/11/16 0118 ADM IN [facility] [address] [place] [address]
--- NOTE | 2016-12-14 15:25 | NUR ---
Alert and oriented to self only, calm and pleasant. Administer medications and monitor compliance. Redirect and reorient . Monitor for any change in behavior. Monitor safety. Compliant with medications. No evidence of reorientation, unable to retain information, has to be reoriented several times throughout the day of place. No aggression. Redirects without any aggression. Safety maintained. Continue plan of care.
[2016-12-14 20:00] VITALS: BP 120/74
--- NOTE | 2016-12-14 22:16 | NUR ---
RECEIVED IN DINING AREA. WALKING ABOUT. SOCIALIZING WITH PEERS AND STAFF. VERY CONFUSED. NO SIGNS OF AGGRESSION. CALM AND COOPERATIVE WITH CARE AND ASSESSMENT. REDIRECT AND REORIENT NEEDED. RESTING EYES CLOSED AT THIS TIME. CONTINUE PLAN OF CARE
[2016-12-15 10:54] VITALS: BP 138/99
--- NOTE | 2016-12-15 14:00 | PN ---
PATIENT:THUAN COX MEDICAL RECORD: [id number] LOCATION:[facility] ADMISSION DATE: 11/30/16 PROGRESS NOTE DATE OF SERVICE: 12/14/2016 SUBJECTIVE: The patient's case was discussed with staff. He has no new complaint. OBJECTIVE: The patient is sleeping better. He has had several nights of no significant agitation. I am still in disagreement about the discharge plan, but he is going to go home with his . His long-term prognosis is guarded. I anticipate he can be transitioned out of the hospital tomorrow morning. He will have followup with his primary care physician. TRANSINT:[id number] Voice Confirmation ID: [id number] DOCUMENT ID: [id number] MARQUISE FRY MD at 1400 CC: [id number] DICTATION DATE: 12/14/16 1518 ROTARY MACHINE OPERATOR: 12/15/[address] [facility] [address] [place] [address]
--- NOTE | 2016-12-15 14:30 | NUR ---
Discharged without incident, discharge instructions given to patient spouse, reinforced safety measures, explained medications, and follow up appointment Verbalized understanding.
--- NOTE | 2016-12-15 16:16 | NUR ---
Receievd this am, alert and oriented to name. No insight to place or situation. Calm and cooperative with care. Compliant with medications. Follows directions without any aggression, thinks he is at home and wanders around throughout the unit. In good behavior control. Safety maintained. Continue plan of care.
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
== END 2016-12-15 14:30 | disposition home or self-care (01) | DRG 57 ==
LOC: D.PSYCH 01:57
PROVIDERS: Psychiatry & Neurology Psychiatry; ADMIT Psychiatry & Neurology Psychiatry
DX: G30.9 Alzheimer's disease, unspecified (principal); F02.81 Dementia in other diseases classified elsewhere, unspecified severity, with behavioral disturbance; I10 Essential (primary) hypertension; E11.9 Type 2 diabetes mellitus without complications; E53.8 Deficiency of other specified B group vitamins; E55.9 Vitamin D deficiency, unspecified; M19.90 Unspecified osteoarthritis, unspecified site; N40.0 Benign prostatic hyperplasia without lower urinary tract symptoms; Z86.73 Personal history of transient ischemic attack (TIA), and cerebral infarction without residual deficits; G40.909 Epilepsy, unspecified, not intractable, without status epilepticus